=== PATIENT | male | born 1995 | race American Indian/Alaskan Native ===

== ENCOUNTER 2018-07-03 16:23 | Emergency (ER) | payer OTHER ==
[~2018-07-03] VITALS: Ht 162.6 cm; Wt 61.2 kg
--- NOTE | 2018-07-03 16:32 | ER.PDOC ---
General Chief Complaint: Requesting Medical Care Stated Complaint: DOG BITES Time seen by MD: 16:32 Source: patient Exam Limitations: no limitations History of Present Illness Initial Comments Pt was bitten by two dogs when passing literature Where: street Animal: dog Animal Appearance: unknown Animal Immunizations: unknown Animal Disposition: Animal Control Notified Context of Attack: "unprovoked" attack Severity of Injury: scratched, bitten Injury Location: lower extremity (both) Review of Systems Constitutional: no symptoms reported Eyes: no symptoms reported Ears: no symptoms reported Nose: no symptoms reported Mouth: no symptoms reported Throat: no symptoms reported Respiratory: no symptoms reported Cardiovascular: no symptoms reported Gastrointestinal: no symptoms reported Genitourinary: no symptoms reported Musculoskeletal: see HPI Skin: see HPI Psychiatric/Neurological: no symptoms reported Physical Exam General Appearance: alert, no distress Skin: puncture, abrasion (in both legs and feet, superficial) Neuro/Vascular/Tendon: no vascular compromise, sensation nml, oriented x3, nml ROM, CN's nml as tested Psych: mood/affect nml HEENT: atraumatic, PERRL, eye lids/conjun nml, ENT nml external inspect. Neck: uninjured, nml inspection Resp/CVS: chest non-tender, breath sounds nml, heart sounds nml, reg. rate & rhythm Abdomen: nml inspection, non-tender Back: nml inspection Extremities: nml inspection, no infection, ROM nml Departure Time of Disposition: 16:44 Disposition: 01 HOME, SELF-CARE Impression: Primary Impression: Dog bite Condition: Stable Patient Instructions: Animal Bite, [id number] Referrals: PCP,UNKNOWN (PCP) PRIMARY CARE PROVIDER Duration or Time Spent with Pa: SHANNAN AGUILAR MD Jul 03, 2018 16:32
[2018-07-03 16:42] VITALS: BP 115/62
--- NOTE | 2018-07-03 16:44 | NUR ---
ARRIVAL PATIENT ARRIVED VIA POV WITH COMPLAINTS MULTIPLE SCRATCHES AND DOG BITES WITH NOTED PUNCTURE WOUNDS
[2018-07-03] MEDS ORDERED: BOOSTRIX TDAP IM ONE ×2 (16:46→17:00)
--- NOTE | 2018-07-03 16:46 | NUR ---
ANIMAL CONTROL ANIMAL CONTROL NOTIFIED
--- NOTE | 2018-07-03 17:00 | NUR ---
ANIMAL CONTROL ANIMAL CONTROL AT PT BEDSIDE AT THIS TIME
--- NOTE | 2018-07-03 17:10 | NUR ---
ANIMAL CONTROL ANIMAL CONTROL WITH PATIENT REPORT OBTAINED
[2018-07-03 17:11] VITALS: BP 115/62
[2018-07-03] MEDS ORDERED: TRIPLE ANTIBIOTIC OINTMENT TP ONE (17:11)
== END 2018-07-03 17:12 | disposition home or self-care (01) ==
LOC: ER 16:23
DX: S81.852A Open bite, left lower leg, initial encounter (principal); S81.851A Open bite, right lower leg, initial encounter; W54.0XXA Bitten by dog, initial encounter; Y93.89 Activity, other specified; Y92.414 Local residential or business street as the place of occurrence of the external cause; Y99.8 Other external cause status
CPT/HCPCS: 90471; 90715; 99283